=== PATIENT | female | born 1970 | race Caucasian/White ===

== ENCOUNTER 2017-12-03 05:07 | Emergency (ER) | payer OTHER ==
[~2017-12-03] VITALS: Ht 162.6 cm; Wt 103.9 kg
[~2017-12-03 05:07] MED LIST: ATENOLOL 100MG100 MG PO; ATENOLOL 50MG T50 MG PO; CALCITRATE200 MG PO; CIPROFLOXACIN500 M1 PO; FLAGYL500 MG PO; FLEXERIL PO; HYDROCODON-ACE1 EAC7 PO; HYDROCODON-ACE1 EACH PO; IBUPROFEN 800800 MG PO; MAXZIDE-25 MG1 EACH PO; MILK THISTLE175 M1 PO; MULTI VITAMIN1 EACH PO; NOHOMEMEDICATIONS; VITAMIN D31000 UNI2 PO; ZOFRAN ODT4 MG PO
[2017-12-03] MEDS ORDERED: BEVESPI AEROS10.7 GM (05:16)
[2017-12-03 05:43] LABS: ABSOLUTE EOSINOPHILS 0.4 thou/uL (0.0-0.7); ABSOLUTE LYMPHOCYTES 2.2 thou/uL (0.8-5.3); ABSOLUTE MONOCYTES 0.5 thou/uL (0.0-1.2); ABSOLUTE NEUTROPHILS 4.3 thou/uL (1.6-8.1); BASOPHILS 0.6 %; EOSINOPHILS 5.9 %; HEMATOCRIT 35.7 % (37.0-47.0); HEMOGLOBIN 11.8 gm/dL (12.0-15.0); LYMPHOCYTES 29.4 %; MCHC 32.9 g/dL (28.0-37.0); MCV 84.9 fL (80.0-100.0); MONOCYTES 7.1 %; MPV 9.7 fl. (7.2-11.1); NUCLEATED RBCS 0 /100WBC; PLATELET COUNT* 223 thou/uL (150-400); RBC 4.21 mil/uL (4.20-5.00); WBC 7.6 thou/uL (4.0-11.0)
[2017-12-03 05:52] LABS: ANION GAP 6 mmol/L (7-16); BUN 23 mg/dL (7-18); CALCIUM 8.9 mg/dL (8.5-10.1); CHLORIDE 105 mmol/L (98-107); CO2 28 mmol/L (21-32); GLUCOSE 105 mg/dL (70-99); POTASSIUM 3.5 mmol/L (3.5-5.1); SODIUM 139 mmol/L (136-145)
[2017-12-03 06:05] LABS: ALBUMIN 3.5 g/dL (3.4-5.0); ALKALINE PHOSPHATASE 87 U/L (46-116); SGOT 19 U/L (15-37); SGPT 18 U/L (30-65); TOTAL BILIRUBIN 0.3 mg/dL (<0.1-1.0); TOTAL PROTEIN 7.2 g/dL (6.4-8.2); TROPONIN-I LEVEL <0.06 ng/mL (<0.06)
[2017-12-03 07:35] VITALS: BP 114/75
--- NOTE | 2017-12-03 14:43 | EKG ---
[place] [address] ELECTROCARDIOGRAM REPORT Name: DAVEYVAIBHAV MANOJ Room: [facility]#: [id number] Admission: 12/03/17 Attend Phys: Discharge: 12/03/17 Date of : 66 Report #: [id number] THIS REPORT FOR: //name// [facility] ED Test Date: 2017-12-03 Test Time: 05:15:02 Pat Name: VAIBHAV MARISCAL Department: Room: Gender: F Compliance Project Manager: SHELIA : 1970 Requested By: Aleks Newton Order Number: [id number] MD: Walter Posada Measurements Intervals [place] Rate: 72 P: 56 VT: 182 QRS: 45 QRSD: 92 T: 48 QT: 390 QTc: 427 Interpretive Statements Sinus rhythm Abnormal R-wave progression, early transition No previous ECG available for comparison Electronically Signed On 12-03-2017 14:43:16 HAND SPINNER by Walter Posada [email or web address] <ELECTRONICALLY SIGNED> By: Walter Posada MD, [facility] 12/03/17 1443 0515 0515 Walter Posada MD, FACC /EPI
== END 2017-12-03 07:35 | disposition home or self-care (01) ==
LOC: M.ERS 05:07
PROVIDERS: Emergency Medicine Emergency Medical Services
DX: R06.00 Dyspnea, unspecified (principal); I10 Essential (primary) hypertension; K21.9 Gastro-esophageal reflux disease without esophagitis; G43.909 Migraine, unspecified, not intractable, without status migrainosus